=== PATIENT | female | born 1960 | race Caucasian/White ===

== ENCOUNTER 2024-09-27 15:04 | Outpatient (CLI) | payer OTHER, SELFPAY ==
--- NOTE | ~2024-09-27 | MR_ITS ---
EXAMINATION: MR brain/brain stem wo/w con DATE: 09/27/2024 16:45 INDICATION: Left-sided trigeminal neuralgia. TECHNIQUE: Magnetic resonance imaging (MRI) of the brain and brainstem was performed without and with 12 mL MultiHance intravenous contrast. COMPARISON: None. FINDINGS: There are scattered areas of nonspecific increased T2-weighted signal intensity in the cere bral white matter. There is no intracranial hemorrhage, acute infarction, or abnormal intracranial ma ss lesion. The ventricles are normal in size. There is mucosal thickening in the paranasal sinuses. T he orbits are normal. There is a right mastoid effusion. IMPRESSION: 1. Moderate nonspecific cerebral white matter disease, which likely represents chronic small vessel i schemic disease. 2. High resolution imaging of the posterior fossa was not performed. If there is clinical concern for vascular loop compression syndrome, high resolution imaging of the posterior fossa and internal mihaela tory canals is recommended (IAC protocol). Reviewed, dictated and finalized at location A. TOOL FILER IMPRESSION: 1. Moderate nonspecific cerebral white matter disease, which likely represents chronic small vessel ischemic disease. 2. High resolution imaging of the posterior fossa was not performed. If there i s clinical concern for vascular loop compression syndrome, high resolution imag ing of the posterior fossa and internal auditory canals is recommended (IAC pro tocol).
--- OUTSIDE RECORDS SUMMARY | 2024-09-27 15:10 | XMS_ITS | Encounter Summary ---
Author Organization [facility] Address [address] [place] [address] Care Team Providers Care Public Relations Studies Director Name Role Phone Micaela Vang MD Primary Care Provider [phone] Encounter Details Date Type Department Care Team (Late st Contact Info) Description 09/26/2024 Results Follow-Up [facility] cliniq.ly [place] [address] [place] [address] Rebeca Haque, AMELIA [address] [facility] Pratik [place] [facility] [address] [place] [address] Social History Tobacco Use Types Packs/Day Years Used Date Smoking Tobacco: Every Day Cigarettes 1 25 Smokeless Tobacco: Never Alcohol Use Standard Drinks/Week Comments Yes 4 (1 standard drink = 0.6 oz pur e alcohol) Comments No Sex and Gender Information Value Date Recorded Sex Assigned at Not on file Legal Sex Female 6:32 AM CDT Gender Identity Not on file Sexual Orientation Not on file documented as of this encounter Miscellaneous Notes * Result Encounter Note - Rosaura Ross - 09/26/2024 8:16 AM CST Called and informed pt of labs. Pt voiced understanding. Pt stated MRI will be tomorrow 09/27/24 ASONIC TESTER * Result Encounter Note - Rebeca Haque ANP - 09/26/2024 7:23 AM ULTRASONIC TESTER Contact patient regarding result. Sodium level is improving but not yet normal. Continue to limit plain water fluids as previously advised. Please obtain result of MRI--MRI is scheduled for Sep 21 at 4pm, at [place] ASONIC TESTER documented in this encounter Plan of Treatment Upcoming Encounters Date Type Department Care Team (Late st Contact Info) Description 10/06/2024 9:00 AM ULTRASONIC TESTER Office Visit [facility] cliniq.ly [place] [address] [place] [address] Rebeca Haque ANP [id number] [facility] Pratik [facility] [address] [place] [address] 10/17/2024 2:00 PM ULTRASONIC TESTER Office Visit [facility] cliniq.ly [place] [address] [place] [address] documented as of this encounter Visit Diagnoses Not on filedocumented in this encounter Care Teams Public Relations Studies Director Relationship Specialty Start Date End Date Micaela Vang MD [address] [place] [address] PCP - General Internal Medicine 03/31/24 documented as of this encounter
--- OUTSIDE RECORDS SUMMARY | 2024-09-27 15:10 | XMS_ITS | Clinical Summary ---
Author Organization [facility] [employer] [place] Address [address] [address] Care Team Providers Care Plant Custodian Name Role Phone Micaela Vang MD Primary Care Provider [phone] Allergies Active Allergy Reactions Criticality Noted Date Comments Carbamazepine Blood Disorder High 08/18/2024 hyponatemia Medications aspirin (ECOTRIN EC) 81 mg Tablet, Delayed Release (E.C.) Take 81 mg by mouth daily. 02/29/20 20 Active ibuprofen (MOTRIN) 800 mg tablet Take 800 mg by mouth. 01/15/20 23 Active nicotine (NICODERM CQ) 14 mg/24 hr patchIndications :Tobacco use Apply 1 Patch to skin as directed every 24 hours. 28 Patch 2 11/20/19 24 Active nicotine polacrilex (Nicorette) 4 mg LozengeIndicatio ns:Tobacco use 1 Lozenge (4 mg) by Mouth/Throat route every 2 hours as needed for Smoking Cessation. 48 Lozenge 1 11/20/19 24 Active amLODIPine (NORVASC) 10 mg tabletIndication s:Benign hypertension Take 1 Tablet (10 mg) by mouth daily. 30 Tablet 06/30/20 24 Active gabapentin (NEURONTIN) 300 mg capsuleIndicatio ns:Trigeminal neuralgia of left side of face Take 2 Capsules (600 mg) by mouth daily at bedtime. 60 Capsule 2 09/08/19 25 Active fluticasone propionate (FLONASE) 50 mcg/spray Sanders, Suspension nasal inhalerIndicatio ns:Sinus congestion Administer 2 Sprays in each nostril daily. 16 Gram 09/08/19 25 Active lisinopriL (PRINIVIL) 20 mg tablet Take 1 Tablet (20 mg) by mouth daily. 90 Tablet 09/13/19 Active lisinopriL (PRINIVIL) 20 mg tablet Take 1 Tablet (20 mg) by mouth daily. 1 Tablet 08/01/20 24 025 Discontin ued(Reord er) gabapentin (NEURONTIN) 300 mg capsule Take one tablet daily for 3 days at bedtime. If no improvement in pain, increase dose to one tablet twice daily. 60 Capsule 1 08/18/20 025 Discontin ued(Reord er) Active Problems Problem Noted Date Diagnosed Date Hyponatremia 07/18/2024 Thrombocytopenia 11/20/2023 Trigeminal neuralgia of left side of face 2022 HTN (hypertension), benign 09/03/2021 Tobacco use 03/07/2020 Encounters Date Type Department Care Team Description 09/26/2024 Results Follow-Up [facility] [address] [place] [address] Rebeca Haque, AMELIA 09/19/2024 2:00 PM VALUE ENGINEER Clinical Support [facility] [address] [place] [address] Hyponatremia 09/15/2024 External Device Data STL ABSTRACTION Provider, Abstract 09/14/2024 8:20 AM VALUE ENGINEER Procedure visit [facility] [address] [place] [address] Encounter for issue of repeat prescription (Primary Dx) 09/13/2024 Results Follow-Up [facility] [address] [place] [address] Rebeca Haque, AMELIA Hyponatremia (Primary Dx) 09/13/2024 Refill [facility] [address] [place] [address] Rebeca Haque ANP 09/09/2024 Telephone [facility] [address] [place] [address] Rebeca Haque, ANP MRI Date 09/08/2024 9:00 AM VALUE ENGINEER Office Visit [facility] [address] [place] [address] Rebeca Haque, AMELIA Trigeminal neuralgia of left side of face (Primary Dx); Hyponatremia; Thrombocytopenia; Sinus congestion 08/18/2024 8:20 AM VALUE ENGINEER Procedure visit [facility] [address] [place] [address] Hyponatremia 08/18/2024 Telephone [facility] [place] [address] [place] [address] Rebeca Haque, ANP Results 08/09/2024 Telephone [facility] [address] [place] [address] Rebeca Haque, ANP Results 08/08/2024 2:00 PM VALUE ENGINEER Clinical Support [facility] [address] [place] [address] Hyponatremia 08/02/2024 Orders Only [facility] [address] [place] [address] Rebeca Haque, ANP Hyponatremia (Primary Dx) 08/01/2024 10:00 AM VALUE ENGINEER Office Visit [facility] [address] [place] [address] Rebeca Haque, ANP Trigeminal neuralgia of left side of face (Primary Dx); Hyponatremia; HTN (hypertension), benign 07/14/2024 1:00 PM VALUE ENGINEER Office Visit [facility] [address] [place] [address] Rebeca Haque, ANP Benign hypertension (Primary Dx); Trigeminal neuralgia of left side of face; Therapeutic drug monitoring 07/07/2024 7:30 AM VALUE ENGINEER Office Visit [facility] [employer] [place] [address] [place] [address] Rebeca Haque ANP HTN (hypertension), benign (Primary Dx); Trigeminal neuralgia of left side of face 06/28/2024 Refill [facility] [employer] [place] [address] [place] [address] Rebeca Haque, AMELIA Benign hypertension from Last 3 Months Immunizations Immunization Administration Dates Next Due (PFIZER)(12 YR UP) COVID-19 VACCINE - EMERGENCY USE AUTHORIZATION, MRNA, [id number](PF) 30 MCG/0.3 ML IM SUSP 08/13/2021,11/26/2020,11/05/2020 (PNEUMOVAX 23)(50 YRS UP) PN EUMOCOCCAL POLYSACCHARIDE (PPV23) 0.5 ML, IM 03/07/2020 (SHINGRIX)(50 YRS UP) ZOSTER VACCINE RECOMBINANT, 0.5 ML, IM 05/09/2020,03/07/2020 INFLUENZA VACCINE QUADRIVALE NT 6 MOS UP IM 05/27/2018 INFLUENZA VACCINE QUADRIVALE NT 6 MOS UP PF IM 05/21/2023,05/22/2022,05/24/2021,05/09 Family History Medical History Relation Name Comments Dementia Father Breast Cancer Mother Lupe Shirley Diabetes Mother Lupe Shirley Hypertension Mother Lupe Shirley No Known Problems Sister Hypertension Son Bertram Lassiter Relation Name Status Comments Father Mother Lupe Shirley Sister Alive Son Bertram Lassiter Social History Tobacco Use Types Packs/Day Years [...] on file Sexual Orientation Not on file Last Filed Vital Signs Vital Sign Reading Time Taken Comments Blood Pressure 124/78 09/08/2024 8:57 AM VALUE ENGINEER Pulse 80 09/08/2024 8:57 AM VALUE ENGINEER Temperature 36.2 ??C (97.1 ??F) 09/08/2024 8:57 AM CS T Respiratory Rate 18 09/08/2024 8:57 AM VALUE ENGINEER Oxygen Saturation 99% 09/08/2024 8:57 AM VALUE ENGINEER Inhaled Oxygen Concentration - - Weight 71.7 kg (158 lb) 09/08/2024 8:57 AM VALUE ENGINEER Height 162.6 cm (5' 4 ) 09/08/2024 8:57 AM VALUE ENGINEER Body Mass Index 27.12 09/08/2024 8:57 AM VALUE ENGINEER Plan of Treatment Upcoming Encounters Date Type Department Care Team (Late st Contact Info) Description 10/06/2024 9:00 AM VALUE ENGINEER Office Visit [facility] [employer] [place] [address] [place] [address] Rebeca Haque, ANP [address] [facility] [address] [place] [address] 10/17/2024 2:00 PM VALUE ENGINEER Office Visit [facility] [employer] [place] [address] [place] [address] Health Maintenance Due Date Last Done Comments DTAP/TDAP/TD VACCINES (1 - Tdap) 12/07/1978 CERVICAL CANCER SCREENING 12/07/1989 BREAST CANCER SCREENING 1999 COLORECTAL SCREENING 12/07/2004 Colorectal Cancer Screening 12/07/2004 FIT-DNA Q 3 years 12/07/2004 FIT/FOBT Q 1 year 12/07/2004 Flex Sig/CT Colonography Q 5 years 12/07/2004 Lung Cancer Screening 12/07/2009 INFLUENZA VACCINE (#1) 2024 3, 05/22/2022, 05/24/2021, Additional history exists COVID-19 Vaccine (2023-2 5 season) 2024 08/13/2021, 11/26/2020, 11/05/2020 Pre-Diabetes and Diabetes Screening 05/29/2025 05/29/2022 RSV VACCINE (60+ or ) (1 - 1-dose 75+ series) 12/07/2034 ZOSTER VACCINE Completed 05/09/2020, 03/07/2020 Procedures Procedure Name Priority Date/Time Associated Diagnosis Comments SODIUM, RANDOM URINE Routine 09/19/2024 1:48 PM VALUE ENGINEER Hyponatremia OSMOLALITY Routine 09/19/2024 1:48 PM VALUE ENGINEER Hyponatremia BASIC METABOLIC PANEL Routine 09/19/2024 1:48 PM VALUE ENGINEER Hyponatremia BASIC METABOLIC PANEL Routine 09/08/2024 9:32 AM VALUE ENGINEER Hyponatremia Thrombocytopenia CBC WITH DIFFERENTIAL Routine 09/08/2024 9:32 AM VALUE ENGINEER Hyponatremia Thrombocytopenia BASIC METABOLIC PANEL Stat 08/18/2024 7:54 AM VALUE ENGINEER Hyponatremia BASIC METABOLIC PANEL Routine 08/08/2024 1:53 PM VALUE ENGINEER Hyponatremia BASIC METABOLIC PANEL Routine 08/01/2024 10:28 AM VALUE ENGINEER Hyponatremia CBC WITH DIFFERENTIAL Routine 07/14/2024 1:34 PM VALUE ENGINEER Therapeutic drug monitoring COMPREHENSIVE METABOLIC PANEL Routine 07/14/2024 1:34 PM VALUE ENGINEER Therapeutic drug monitoring CBC WITH DIFFERENTIAL Routine 07/07/2024 8:04 AM VALUE ENGINEER Trigeminal neuralgia of left side of face COMPREHENSIVE METABOLIC PANEL Routine 07/07/2024 8:04 AM VALUE ENGINEER Trigeminal neuralgia of left side of face TSH REFLEXIVE Routine 07/07/2024 8:04 AM VALUE ENGINEER Trigeminal neuralgia of left side of face HEMOGLOBIN A1C Routine 05/29/2022 7:36 AM CDT Encounter for routine adult health examination without abnormal findings from Last 3 Months or Most Recently Relevant to Health Maintenance Results * SODIUM, RANDOM URINE (09/19/2024 1:48 PM VALUE ENGINEER) SODIUM, URINE 56 28 - 272 mmol/L [facility] Comment: Test Performed at: [facility] [address] [place] ??[phone] Heladio Acosta MD Urine URINE SPECIMEN OBTAINED BY CLEAN CATCH PROCEDURE / Unknown 09/19/2024 1:48 PM VALUE ENGINEER 09/20/2024 9:13 AM VALUE ENGINEER Rebeca Haque ANP URINE ORDERABLES Final Resul t Performing Organization Address City/[facility] Co de Phone Number [facility] [phone] [facility] [address] * OSMOLALITY (09/19/2024 1:48 PM VALUE ENGINEER) OSMOLALITY 284 278 - 305 mOsm/kg [facility] Comment: Test Performed at: [facility] [address] [place] [address] ??[phone] Heladio Acosta MD Blood 09/19/2024 1:48 PM VALUE ENGINEER 09/20/2024 11:00 AM VALUE ENGINEER us Rebeca Haque ANP CHEMISTRY ORDERABLES Final R esult Performing Organization Address [facility] Co de Phone Number [facility] [phone] [facility] [address] [address] * (ABNORMAL) BASIC METABOLIC PANEL (09/19/2024 1:48 PM VALUE ENGINEER) Only the most recent of5 resultswithin the time period is included. GLUCOSE 98 65 - 99 mg/dL [facility] Comment: ? Fasting reference interval BUN 8 7 - 25 mg/dL [facility] CREATININE 0.56 0.50 - 1.05 mg/dL [facility] GFR 102 > OR = 60 mL/min/1.7 3m2 [facility] BUN/CREAT RATIO SEE NOTE: (calc) [facility] Comment: ?? Not Reported: BUN and Creatinine are within ?? reference range. ? SODIUM 133(L) 135 - 146 mmol/L [facility] POTASSIUM 4.1 3.5 - 5.3 mmol/L [facility] CHLORIDE 97(L) 98 - 110 mmol/L [facility] CO2 28 20 - 32 mmol/L [facility] CALCIUM 9.9 8.6 - 10.4 mg/dL [facility] Comment: Test Performed at: [facility] ??[phone] Heladio Acosta MD Blood 09/19/2024 1:48 PM VALUE ENGINEER 09/20/2024 11:00 AM VALUE ENGINEER us Rebeca Haque [facility] CHEMISTRY ORDERABLES Final R esult [facility] [phone] [facility] [address] [address] * CBC WITH DIFFERENTIAL (09/08/2024 9:32 AM VALUE ENGINEER) Only the most recent of3 resultswithin the time period is included. WBC 5.6 3.8 - 10.8 Thousand/u L [facility] RBC 4.05 3.80 - 5.10 Million/uL [facility] HEMOGLOBIN 13.1 11.7 - 15.5 g/dL [facility] HEMATOCRIT 38.4 35.0 - 45.0 % [facility] MCV 94.8 80.0 - 100.0 fL [facility] MCH 32.3 27.0 - 33.0 pg [facility] MCHC 34.1 32.0 - 36.0 g/dL [facility] Comment: For adults, a slight decrease in the calculated MCHC value (in the range of 30 to 32 g/dL) is most likely not clinically significant; however, it should be interpreted with caution in correlation with other red cell parameters and the patient's clinical condition. RDW 12.9 11.0 - 15.0 % [facility] PLATELETS 395 140 - 400 Thousand/u L [facility] MPV 9.7 7.5 - 12.5 fL [facility] NEUTROPHIL ABSOLUTE 3,959 1,500 - 7,800 cells/uL [facility] LYMPHOCYTE ABSOLUTE 1,254 850 - 3,900 cells/uL [facility] MONOCYTE ABSOLUTE 291 200 - 950 cells/uL [facility] EOSINOPHIL ABSOLUTE 73 15 - 500 cells/uL [facility] BASOPHILS ABSOLUTE 22 0 - 200 cells/uL [facility] NEUTROPHIL 70.7 % [facility] LYMPHOCYTES 22.4 % [facility] MONOCYTE 5.2 % [facility] EOSINOPHILS 1.3 % [facility] BASOPHILS 0.4 % [facility] Comment: Test Performed at: [place] [address] [place] ??[phone] Mikayla-Shruthi Deborah Blood 09/08/2024 9:32 AM VALUE ENGINEER 09/08/2024 11:19 PM VALUE ENGINEER us Rebeca Haque ANP HEMATOLOGY ORDERABLES Final Result [facility] [phone] [facility] [place] [address] [place] [address] * (ABNORMAL) COMPREHENSIVE METABOLIC PANEL (07/14/2024 1:34 PM VALUE ENGINEER) Only the most recent of2 resultswithin the time period is included. GLUCOSE 89 65 - 99 mg/dL [facility] Comment: ? Fasting reference interval BUN 6(L) 7 - 25 mg/dL [facility] CREATININE 0.54 0.50 - 1.05 mg/dL [facility] GFR 103 > OR = 60 mL/min/1.7 3m2 [facility] BUN/CREAT RATIO 11 6 - 22 (calc) [facility] SODIUM 133(L) 135 - 146 mmol/L [facility] POTASSIUM 3.6 3.5 - 5.3 mmol/L [facility] CHLORIDE 94(L) 98 - 110 mmol/L [facility] CO2 32 20 - 32 mmol/L [facility] CALCIUM 9.3 8.6 - 10.4 mg/dL [facility] TOTAL PROTEIN 7.0 6.1 - 8.1 g/dL [facility] ALBUMIN 4.6 3.6 - 5.1 g/dL [facility] GLOBULIN 2.4 1.9 - 3.7 g/dL (calc) [facility] ALBUMIN/GLOBULIN RATIO 1.9 1.0 - 2.5 (calc) [facility] BILIRUBIN TOTAL 0.2 0.2 - 1.2 mg/dL [facility] ALKALINE PHOSPHATASE 43 37 - 153 U/L [facility] AST 22 10 - 35 U/L [facility] ALT 18 6 - 29 U/L [facility] Comment: Test Performed at: [facility] [address] [place] ??[phone] Heladio Acosta MD Blood 07/14/2024 1:34 PM VALUE ENGINEER 07/15/2024 6:37 AM VALUE ENGINEER us Rebeca Haque [facility] CHEMISTRY ORDERABLES Final R esult [facility] [phone] [facility] [address] [place] [phone] * TSH REFLEXIVE (07/07/2024 8:04 AM VALUE ENGINEER) TSH 0.96 0.40 - 4.50 mIU/L [facility] Comment: Test Performed at: [facility] [address] [place] ??[phone] Heladio Acosta MD Blood 07/07/2024 8:04 AM VALUE ENGINEER 07/08/2024 3:45 AM VALUE ENGINEER us Rebeca Hinkle Garland ANP CHEMISTRY ORDERABLES Final R esult Performing Organization Address City/[facility]/ZIP Co de Phone Number [facility] [phone] [facility] [address] [place] [address] * HEMOGLOBIN A1C (05/29/2022 7:36 AM CDT) HEMOGLOBIN A1C 5.1 <5.7 % of total Hgb [facility] Comment: For the purpose of screening for the presence of diabetes: <5.7% ? Consistent with the absence of diabetes 5.7-6.4% ?Consistent with increased risk for diabetes ?(prediabetes) > or =6.5% ??Consistent with diabetes This assay result is consistent with a decreased risk of diabetes. Currently, no consensus exists regarding use of hemoglobin A1c for diagnosis of diabetes in children. According to [place] Diabetes Association (ADA) guidelines, hemoglobin A1c <7.0% represents optimal control in non- diabetic patients. Different metrics may apply to specific patient populations. Standards of Medical Care in Diabetes(ADA). ?? ESTIMATED AVERAGE GLUCOSE (MG/DL) 100 mg/dL [facility] ESTIMATED AVERAGE GLUCOSE (MMOL/L) 5.5 mmol/L [facility] Comment: Test Performed at: [facility] [address] [place] ??[phone] Cruz Khan D.O., MPH Blood 05/29/2022 7:36 AM CDT 05/30/2022 3:22 AM CDT Yana GONZALESP CHEMISTRY ORDERABLES F inal Result Performing Organization Address [facility]/ZIP Co de Phone Number [facility] [phone] [facility] [address] [place] [address] from Last 3 Months or Most Recently Relevant to Health Maintenance Insurance * Guarantor: [employer]) Account Type Relation to Patient Date of Phone Billing Address Corporate Employer ATTN: MYLENE DELEON [address] [address] ALLEGIANCE OPEN ACCESS * Guarantor: [employer] Account Type Relation to Patient Date of Phone Billing Address Corporate Employer ATTN: MYLENE DELEON [address] [address] Care Teams Plant Custodian Relationship Specialty Start Date End Date Micaela Vang MD [address] [place] [address] PCP - General Internal Medicine 03/31/24
--- OUTSIDE RECORDS SUMMARY | 2024-09-27 15:10 | XMS_ITS | Encounter Summary ---
Author Organization [facility] Address [address] [place] [address] Care Team Providers Care Turf Sales Person Name Role Phone Micaela Vang MD Primary Care Provider [phone] Encounter Details Date Type Department Care Team (Latest Contact Info) Description 09/13/2024 Results Follow-Up [facility] [place] at [facility] [employer] [place] [address] [place] [address] Rebeca Haque, AMELIA [address] [facility] Pratik Potter [address] [place] [address] Hyponatremia (Primary Dx) Social History Tobacco Use Types Packs/Day Years [...] Miscellaneous Notes * Result Encounter Note - Briana Contreras RN - 09/13/2024 3:31 PM MANAGED CARE MANAGER Spoke to pt giving this information. Pt verbalized understanding. Repeat labs scheduled for 09/19/2024 at 2:00 PM GED CARE MANAGER * Result Encounter Note - Rebeca Haque ANP - 09/13/2024 2:52 PM MANAGED CARE MANAGER Contact patient regarding result. -- I left message for her to please call us back. Sodium stable but remains low. Platelet count back to normal. Recommend continue the gabapentin for facial pain. Check some different labs related to the low sodium. Urine and blood. Check next week. Recommend she limit the plain water she drinks daily to no more than 48 ounces. She can have coffee, gatorade, juices in reasonalble quantities that does not count towards the total water amount. Do not exceed 84 oz total fluid intake daily GED CARE MANAGER documented in this encounter Plan of Treatment Upcoming Encounters Date Type Department Care Team (Late st Contact Info) Description 10/06/2024 9:00 AM MANAGED CARE MANAGER Office Visit [facility] [place] [facility] [employer] [place] [address] [place] [address] Rebeca Haque, AMELIA [address] [facility] Pratik Potter [address] [address] 10/17/2024 2:00 PM MANAGED CARE MANAGER Office Visit [facility] [place] [facility] [employer] [place] [address] [place] [address] documented as of this encounter Results * (ABNORMAL) BASIC METABOLIC PANEL (09/19/2024 1:48 PM MANAGED CARE MANAGER) [facility] GLUCOSE 98 65 - 99 mg/dL [facility] Comment: ? Fasting reference interval BUN 8 7 - 25 mg/dL [facility] CREATININE 0.56 0.50 - 1.05 mg/dL [facility] GFR 102 > OR = 60 mL/min/1.7 3m2 [facility] BUN/CREAT RATIO SEE NOTE: 6 - 22 (calc) [facility] Comment: ?? Not [...] [facility] Comment: Test Performed at: [facility] ??[phone] Heladio Acosta MD Blood 09/19/2024 1:48 PM MANAGED CARE MANAGER 09/20/2024 11:00 AM MANAGED CARE MANAGER us Rebeca Haque ANP CHEMISTRY ORDERABLES Final R [facility] [phone] [address] * OSMOLALITY (09/19/2024 1:48 PM MANAGED CARE MANAGER) OSMOLALITY 284 278 - 305 mOsm/kg [facility] Comment: Test Performed at: [facility] ??[phone] Heladio Acosta MD Blood 09/19/2024 1:48 PM MANAGED CARE MANAGER 09/20/2024 11:00 AM MANAGED CARE MANAGER us Rebeca Haque ANP CHEMISTRY ORDERABLES Final R [facility] [phone] [address] * SODIUM, RANDOM URINE (09/19/2024 1:48 PM MANAGED CARE MANAGER) SODIUM, URINE 56 28 - 272 mmol/L [facility] Comment: Test Performed at: [facility] ??[phone] Heladio Acosta MD Urine URINE SPECIMEN OBTAINED BY CLEAN CATCH PROCEDURE / Unknown 09/19/2024 1:48 PM MANAGED CARE MANAGER 09/20/2024 9:13 AM MANAGED CARE MANAGER us Rebeca Haque ANP URINE ORDERABLES Final Resul t [facility] [phone] [facility] [address] [place] [address] documented in this encounter Visit Diagnoses Diagnosis Hyponatremia- Primary Hyposmolality and/or hyponatremia documented in this encounter Care Teams Turf Sales Person Relationship Specialty Start Date End Date Micaela Vang MD [address] [place] [address] PCP - General Internal Medicine 03/31/24 documented as of this encounter
== END 2024-09-27 15:05 | disposition home or self-care (01) ==
PROVIDERS: Visit Provider Nurse Practitioner Adult Health
DX: R90.82 White matter disease, unspecified (principal); G50.0 Trigeminal neuralgia
CPT/HCPCS: 70553; A9577